=== PATIENT | female | born 1925 | race Caucasian/White ===

== ENCOUNTER 2016-06-26 07:48 | Day surgery (SDC) | payer OTHER ==
[~2016-06-26 07:48] MED LIST: ALENDRONATE SOD70 MG PO; ALLOPURINOL300 MG PO; FUROSEMIDE20 MG PO; LISINOPRIL/HCTZ PO; METOPROLOL TARTATE PO; POTASSIUM CHLO10 ME2 PO; PREDNISONE10 MG PO; XARELTO10 MG PO
--- NOTE | 2016-06-26 10:31 | NUR ---
INTRODUCED TO STUDENT NURSE IN PREOP HOLDING, CONFIRMED PROCEDURE
--- NOTE | 2016-06-26 10:49 | NUR ---
PT RECEIVED TO PACU AWAKE AND COMFORTABLE. DENIES PAIN OR NAUSEA. VSS.
--- NOTE | 2016-06-26 11:00 | NUR ---
DR ROSAS SPOKE WITH PT REGARDING SURGICAL FINDINGS AND FOLLOW-UP CARE. RIGHT ARM ELEVATED ON PILLOW. PT COMFORTABLE AND AWAKE. VSS.
--- NOTE | 2016-06-26 11:06 | NUR ---
PREOP INSTRUCTIONS GIVEN TO PATIENT. QUESTIONS ANSWERED. PATIENT VERBALIZES UNDERSTANDING. CONSENT CONFIRMED. EXTREMITY MARKED. NO PREOP MEDICATIONS GIVEN. KB
[2016-06-26] MEDS ORDERED: NORCO1 TA1 PO (11:07)
--- NOTE | 2016-06-26 11:08 | Provider's Discharge Care Plan ---
Problem, Goal, Plan Problem List 1. Skin carcinoma
--- NOTE | 2016-06-26 11:08 | Provider's Discharge Care Plan ---
Problem, Goal, Plan Problem List 1. Skin carcinoma
--- NOTE | 2016-06-26 11:38 | NUR ---
PATIENT RETURNED TO THE FLOOR AWAKE AND TALKING. DENIES PAIN. CMS INTACT. PO OFFERED AND REFUSED. DENIES NAUSEA. KB
--- NOTE | 2016-06-26 11:53 | OPERATIVE REPORT ---
DATE OF SURGERY: 06/26/2016 SURGEON: Doug Morley MD PREOPERATIVE DIAGNOSIS: 1. Squamous cell carcinoma of right forearm POSTOPERATIVE DIAGNOSIS: 1. Squamous cell carcinoma of right forearm PROCEDURE PERFORMED: 1. Excision of squamous cell carcinoma of right forearm ANESTHESIA: Total IV general and local. INDICATIONS: The patient is an 89-year-old woman with a biopsy-proven, enlarging squamous cell carcinoma of the right forearm. SURGICAL TECHNIQUE: The patient was taken to the operating room where total IV general was administered and the patient prepped and draped in the usual sterile fashion. She was breathing spontaneously throughout the procedure. A transverse elliptical incision was designed and marked out. An additional 1 mm rim of skin was also taken at all edges. This is full-thickness excised, and the resultant section of tissue removed was about 6 x 3 cm, with a large central nodule. The edges were examined under frozen section, and the rims of skin at proximal and distal margins proved to be negative. The excision was carried down into the deep subcutaneous tissue. Localized undermining was done. This patient's skin reached alright; however, she had extremely thin skin with poor dermis in a typical onion-skin fashion. Note, this is an elderly person on prednisone. The medial and lateral sections of it were closed with interrupted subcuticular 4-0 Vicryl suture. However, in the central portion, where there was slightly more tension, the tissues simply cut through the nonexistent dermis. This section was closed with vertical mattress and simple 5-0 nylon suture, which was gently approximated. Nonetheless, the needle holes tended to pull small holes in the skin. The lateral edges that were closed with subcuticular suture were treated with Steri-Strips, and the central part was treated with Neosporin ointment and a nonadherent dressing. The patient left in good condition and no intraoperative complications were encountered.
--- NOTE | 2016-06-26 12:33 | NUR ---
PATIENT CONTINUES TO DENY PAIN. MIN-MOD AMOUNT OF SHADOWING ON DSG. CONTINUES TO REFUSE PO. GOING HOME FOR LUNCH. DISCHARGE INSTRUCTIONS GIVEN TO PATIENT AND HER SON. QUESTIONS ANSWERED. PATIENT VERBALIZES UNDERSTANDING. DISCHARGED HOME. KB
== END 2016-06-26 12:25 | disposition home or self-care (01) ==
LOC: OR SRH 07:48 → SCU SRH 07:55
PROVIDERS: Surgery
PROC: 0JBG0ZZ Excision of Right Lower Arm Subcutaneous Tissue and Fascia, Open Approach (ICD-10-PCS; principal; 2016-06-26 10:00)
PROC: 0JQG0ZZ Repair Right Lower Arm Subcutaneous Tissue and Fascia, Open Approach (ICD-10-PCS; principal; 2016-06-26 10:00)
DX: C44.622 Squamous cell carcinoma of skin of right upper limb, including shoulder (principal); Z79.52 Long term (current) use of systemic steroids; I50.9 Heart failure, unspecified; I10 Essential (primary) hypertension
CPT/HCPCS: 29229; 29240; 50004; 60001; 80212; 84038

== ENCOUNTER 2016-10-27 18:36 | Inpatient (IN) | payer OTHER ==
[~2016-10-27] VITALS: Ht 165.1 cm; Wt 78.6 kg
[~2016-10-27 18:36] MED LIST changes: +NORCO1 TA1 PO
--- NOTE | 2016-10-27 20:53 | DIAGNOSTIC IMAGING REPORT ---
PROCEDURE: CT ABDOMEN/PELVIS W/O CONTRAST INDICATION: ABDOMINAL PAIN, flank pain, nausea, vomiting, leukocytosis. TECHNIQUE: Axial CT images were obtained through the abdomen and pelvis without IV contrast. Coronal and sagittal reformations were created. No contrast given for low GFR. COMPARISON: 11/23/2014 FINDINGS: Heart size at the upper limits of normal. Minor bibasilar scarring. Small hiatal hernia. Bilateral renal atrophy. The gallbladder surgically absent. Diffuse lipomatous change of the pancreas. Moderately enlarged left lobe of the liver, chronic. The unenhanced appearance of the adrenal glands and spleen is normal. The abdominal aorta is normal in its course and caliber with moderate atherosclerosis. IVC filter in place. There are no suspicious calcifications, retroperitoneal adenopathy or masses. The stomach, upper bowel loops, and mesentery appears normal. Tiny fat containing ventral abdominal wall hernia. No free fluid, or inflammation. Surgically absent uterus. Moderate pelvic floor prolapse. Surgical clips in the cul-de-sac and left inguinal region. Occasional diverticula of the sigmoid colon. No acute pericolonic inflammation. Pelvic small bowel loops, urinary bladder, and pelvic vessels appear normal. Mild pelvic vascular atherosclerosis. Normal appendix. No suspicious calcifications, free fluid, or mass. Severe degenerative changes in the spine. IMPRESSION: 1. No acute process. 2. Stable compared to the prior study. 3. Discussed with Dr. Schmitz in the emergency room. All CT scans at this facility use dose modulation, iterative reconstruction, and/or weight-based dosing when appropriate to reduce radiation dose to as low as reasonably achievable.
--- NOTE | 2016-10-27 21:07 | ED NURSING NOTES ---
Clinical Report - Nurses [facility] [address] [place] [address] 10/27/2016 18:38 Patient: TAD PATEL TRIAGE Triage time 1850 PM. Acuity: LEVEL 3. Chief Complaint: ABDOMINAL PAIN, NAUSEA, VOMITING and DIARRHEA. Alert. No acute distress. SEPSIS SCREEN: Sepsis Screen. Negative (no infection suspected/documented). DARIEN COMA SCORE: Ashley Coma Scale: 15- eyes open spontaneously (4); best verbal response- oriented x 4 (5); best motor response- obeys commands (6). --18:58 Ana Guevara R.N. 18:47 10/27/16. BP: 108/78. HR: 128. RR: 16. O2 saturation: 97% on room air. Temp: 98.8 F (oral). Pain level now: 03/03. --18:58 Ana Guevara R.N. Weight: 77.1 kg stated. Height/Length: 65 inches Per Patient. BMI: 28.3. --18:47 Ana Guevara R.N. Medications Allopurinol Oral (Tablet 300 mg), daily. Digoxin Oral (Tablet 125 mcg) 1 tablet (1 tab ;;sa cain and 2 tablets on ; ; fr). Furosemide Oral (Tablet 20 mg) 2 tablets, daily. Potassimin Oral 10 meq, 1 twice daily. Simvastatin Oral (Tablet 20 mg) 1 tablet, daily. --18:52 Ana Guevara R.N. Lisinopril Oral. --18:52 Ana Guevara R.N. Metoprolol Tartrate Oral. --18:52 Ana Guevara R.N. PredniSONE Oral. --21:49 Ana Guevara R.N. The following entry was struck by Ana Guevara R.N., 21:49 (10/27/16) Reason - other. <<STRICKEN ENTRY-- Promethazine HCl Oral (Tablet 12.5 mg) 1 tablet, 4x a day as needed. --18:52 Ana Guevara R.N. --END STRIKE>>. Allergies No Known Drug Allergy. --18:52 Ana Guevara R.N. Medication/allergy information source: the patient. --18:58 Ana Guevara R.N. History Arrived by private vehicle. Historian: patient. Accompanied by family and son. Primary physician (Dr. Estrella). ( Pt states that since Thursday has been vomiting multiple times a day maybe 6-7, unable to keep food down since thursday. Pain is on the right lower quadrant pain/right flank pain. Pt has also had diarrhea dark stools (same as vomit). Pt has felt hot and cold, weak, SOB.). Onset. (Thursday). She has had fever, nausea, vomiting, diarrhea and abdominal pain. No constipation. Last oral intake by patient was (thursday). Treatment ATTENDING RADIOLOGIST: None. PAST MEDICAL HX: Immunizations: up-to-date. The patient has had a hysterectomy. SOCIAL HX: Never smoker. No alcohol use or drug use. No recent travel. No infectious disease exposure. No known contact with a sick individual. ABUSE ASSESSMENT: No report of abuse. SELF HARM ASSESSMENT: A self harm assessment was performed. The patient answered "no" to the question "Do you have thoughts of harming or killing yourself?" and "Have you recently had thoughts about harming or killing others?". FALL RISK ASSESSMENT: Fall risk assessment completed. No fall risk identified. NUTRITIONAL RISK ASSESSMENT: The nutritional risk assessment revealed no deficiencies. FUNCTIONAL ASSESSMENT: Functional assessment: no impairments noted. LEARNING NEEDS ASSESSMENT: The learning needs assessment revealed no barriers. SKIN INTEGRITY ASSESSMENT: Skin integrity risk assessment completed. No skin integrity risk identified. --18:58 Ana Guevara R.N. PROBLEMS: Pulmonary Embolism. Renal Insufficiency. Abnormal Test. Gout. Congestive Heart Failure. Hypertension. --18:53 Ana Guevara R.N. Fibromyalgia. --21:49 Ana Guevara R.N. ADDITIONAL SURGERIES: Bowel resection for colon CA. Hysterectomy. --18:53 Ana Guevara R.N. IVC filter. --19:00 Ana Guevara R.N. Cholecystectomy. --21:49 Ana Guevara R.N. Interventions ID band on patient. --18:58 Ana Guevara R.N. PHYSICAL ASSESSMENT To room via wheelchair. GENERAL / NEURO / PSYCH: Alert. Oriented X 4. Appears in no acute distress. Appears in pain. HEENT: Mucous membranes are pink. RESPIRATORY: Respirations not labored. Breath sounds within normal limits. CVS: Capillary refill less than 2 seconds. GI / : The patient has had nausea. Abdominal tenderness in the right side of the abdomen and right lower quadrant. Guarding and rebound tenderness present. Bowel sounds within normal limits. SKIN: Skin is warm and dry. --18:59 Ana Guevara R.N. NURSING PROGRESS NOTES The initial plan of care for this patient has been created This plan of care was discussed with the patient and family. Pulse oximeter and NIBP monitor placed on patient; monitor alarms on. Patient gowned. Reassurance given. Patient identifiers checked. Call light placed in reach. Side rails up x 1. Bed placed in lowest position. Brakes of bed on. --19:00 Ana Guevara R.N. Patient ready for evaluation. --19:00 Ana Guevara R.N. 19:10/27/2016 Site #1 started via IV in the right antecubital space with an 18g angiocath; one attempt. Blood drawn: rainbow set. Labeled in the presence of the patient and sent to the lab. --19:16 Ana Guevara R.N. 19:25 10/27/2016 Zofran (Ondansetron HCl) IVP 4 mg given over 2 minute(s) via site #1. Allergies verified and confirmed 5 rights. IV patency established. IV site checked: no pain, redness, or swelling. IV flushed thoroughly pre- and post-medication administration. IVP given by RN. --19:25 Ana Guevara R.N. :10/27/2016 Started bag #1 1000 mL IV Fluids IV NS (Saline); bolus of 500 mL over 1 hour(s) then at 125 mL/hr over 4 hour(s) via site #1 via IV pump. Allergies verified and confirmed 5 rights. IV patency established. IV site checked: no pain, redness, or swelling. IV flushed thoroughly pre- and post-medication administration. --19:25 Ana Guevara R.N. 19:25 10/27/16. BP: 102/75. HR: 129. RR: 16. O2 saturation: 98% on room air. Pain level now: 9/10. --19:26 Ana Guevara R.N. Cardiac rhythm: normal sinus rhythm. Patient ID band checked for patient name, birthdate and medical record number: patient confirmed. Catheterized urine collected with return of yellow-colored sari-colored clear urine; sample sent to lab for urinalysis. Specimen labeled in the presence of the patient. The patient is calm. GI / : The patient reports nausea. The patient reports abdominal pain. Patient identifiers checked. Call light placed in reach. --19:26 Ana Guevara R.N. EKG time: (19:23). EKG was performed by a tech and shown to the ED physician. --19:43 Mimi Dean 20:00 10/27/16. BP: 107/90. HR: 120. RR: 15. O2 saturation: 96% on room air. Pain level now: 0/10. --20:58 Ana Guevara R.N. 20:00 PM. Cardiac rhythm: sinus tachycardia. manager printing, pulse oximeter and NIBP monitor placed on patient; monitor alarms on. Reassurance given. Reassessment after oxygen and fluids administered. She is calm and resting quietly. Overall patient status is the same- she states feels the same. GI / : The patient reports abdominal pain. Denies nausea, diarrhea or vomiting. Patient identifiers checked. --20:58 Ana Guevara R.N. 20:34 10/27/2016 IV Fluids IV NS via IV site #1 Rate Changed: bag #1 decreased to 125 mL/hr via IV pump. IV patency established. IV site checked: no pain, redness, or swelling. IV flushed thoroughly. --20:59 Ana Guevara R.N. 20:59 10/27/2016 Zofran IVP Response: no adverse reaction symptoms have improved the patient feels better. --20:59 Ana Guevara R.N. 21:35 10/27/2016 Started 1 gm of Ceftriaxone IVPB in bag #1 50 mL; at 150 mL/hr over 30 minute(s) via site #1 via IV pump. Allergies verified and confirmed 5 rights. IV patency established. IV site checked: no pain, redness, or swelling. IV flushed thoroughly pre- and post-medication administration. Completed per protocol. --21:35 Ana Guevara R.N. Cardiac rhythm: sinus tachycardia. Oxygen administered by nasal cannula at 2 liters. manager printing, pulse oximeter and NIBP monitor placed on patient. Reassurance given. Reassessment after fluids administered. She is calm. Overall patient status is the same- she states feels the same. ( Pt asymptomatic with Bp80's fluids infusing, blood cultures x2 acquired, iv antibiotics infusing. Will monitor). Patient identifiers checked. Call light placed in reach. --21:37 Ana Guevara R.N. 21:00 10/27/16. BP: 83/60 (regular adult cuff) taken on the left arm, via an automated monitor, while lying. HR: 120. RR: 15. O2 saturation: 97% on room air. Temp: 98.9 F. Pain level now: 0/10. --21:37 Ana Guevara R.N. 21:50 10/27/16. BP: 105/77 (regular adult cuff) taken on the left arm, via an automated monitor, while lying. HR: 120. RR: 15. O2 saturation: 100%. Temp: 99 F. Pain level now: 0/10. --21:51 Ana Guevara R.N. Cardiac rhythm: sinus tachycardia. Monitoring of patient in place. Reassurance given. The patient is calm and resting quietly. Overall patient status is the same- she states feels better. GI / : Denies abdominal pain, nausea, diarrhea or vomiting. SKIN: Skin is warm. Skin color within normal limits. Call light placed in reach. --21:51 Ana Guevara R.N. 22:09 10/27/2016 Ceftriaxone IVPB Discontinued: bag #1 completed upon admission. Total amount infused: 50 mL. IV patency established. IV site checked: no pain, redness, or swelling. IV flushed thoroughly. --22:14 Ana Guevara R.N. DISPOSITION / DISCHARGE 22:13 10/27/2016 Site #1 reassessed; patent, infusing well and no signs of infection or infiltration. Good blood return present. --22:13 Ana Guevara R.N. Departure time: 2213 PM. Condition at departure: stable. Report was given to a nurse via a phone call. Report included patient's care, treatment, medications, reviewed medication reconcilliation, and condition (including any recent changes or anticipated changes). All questions were answered. Report was acknowledged and care was transferred. (Rosey Moore). FALL RISK ASSESSMENT: Fall risk assessment completed. No fall risk identified. --22:13 Ana Guevara R.N. Cardiac rhythm: sinus tachycardia. --22:14 Ana Guevara R.N. 22:00 10/27/16. BP: 105/75. HR: 120. RR: 15. O2 saturation: 100% on room air. Temp: 99 F (oral). Pain level now: 0/10. --22:14 Ana Guevara R.N. Locked/Released at 10/27/2016 22:14 by Ana Guevara R.N.
--- NOTE | 2016-10-27 21:07 | ED CLINICAL REPORT ---
Clinical Report - Physicians/Mid Levels [facility] [address] [place] [address] 10/27/2016 18:38 Patient: TAD PATEL Time Seen: 18:51. Arrived- By private vehicle. Historian- patient. HISTORY OF PRESENT ILLNESS Chief Complaint: ABDOMINAL PAIN. At its maximum, severity described as severe. When seen in the E.D., it was gone. Modifying factors- worsened by walking. It is described as "pain", sharp and stabbing. No radiation. It is described as located in the right lower quadrant. This started 2 days ago and is now gone. It was abrupt in onset and has been intermittent and waxing/waning. The patient has had nausea, loss of appetite and vomiting. She has had diarrhea (dark). This has occurred several times. Similar symptoms previously: None. REVIEW OF SYSTEMS No chills, fever, sweats, calf pain or chest pain. No cough, difficulty breathing, pedal edema, palpitations or constipation. No urinary problems. She has had black stools. All systems otherwise negative, except as recorded above. PAST HISTORY PCP - Sameer. Problems: Pulmonary Embolism. Renal Insufficiency. Abnormal Test. Gout. Congestive Heart Failure. Hypertension. Additional Surgeries: Bowel resection for colon CA. Cholecystectomy. Hysterectomy. IVC filter. Medications: Metoprolol Tartrate Oral. Lisinopril Oral. Allopurinol Oral (Tablet 300 mg), daily. Digoxin Oral (Tablet 125 mcg) 1 tablet (1 tab ;;sa cain and 2 tablets on ; ; fr). Furosemide Oral (Tablet 20 mg) 2 tablets, daily. Potassimin Oral 10 meq, 1 twice daily. Promethazine HCl Oral (Tablet 12.5 mg) 1 tablet, 4x a day as needed. Simvastatin Oral (Tablet 20 mg) 1 tablet, daily. Allergies: No Known Drug Allergy. SOCIAL HISTORY Never smoker. No alcohol use. Is a local resident. Resides in a house. She lives with a family member. FAMILY HISTORY Hypertension in first-degree relative (mother); heart disease in first-degree relative (mother and father); cancer in first-degree relative (mother). brother due to kidney disease. ADDITIONAL NOTES The nursing notes have been reviewed. PHYSICAL EXAM Vital Signs: 10/27/2016 18:47 BP: 108/78. HR: 128. RR: 16. O2 saturation: 97%. Temp: 98.8 F. Pain level now: 03/03. Have been reviewed. Appearance: Alert. Eyes: Pupils equal, round and reactive to light. ENT: Pharynx normal. Neck: Neck supple. CVS: Normal heart rate and rhythm. Heart sounds normal. Respiratory: No respiratory distress. Breath sounds normal. Abdomen: Soft. Moderate tenderness in the epigastric area, right lower quadrant and lower abdomen. Bowel sounds normal. No organomegaly. No mass. Back: Normal inspection. Rectal: External hemorrhoids. Heme-positive stool. (POC test reference range: negative). Skin: Skin warm and dry. Normal skin color. Normal skin turgor. Extremities: Extremities exhibit normal ROM. No lower extremity edema. LABS, X-RAYS, AND EKG EKG: Rate: 118. Tachycardia. Non-specific ST segment / T wave abnormalities. Changes present when compared to prior EKG. (26 Jun 2016). Chest X-ray: No acute disease. The X-rays were independently viewed by me. Abdominal CT: IMPRESSION: 1. No acute process. 2. Stable compared to the prior study. The study was interpreted contemporaneously by me and discussed with the radiologist. Laboratory Tests: UA-Culture if indicated: (JASON: 10/27/2016 19:10) ( MsgRcvd 10/27/2016 19:33) Final results Test Result Flag Units (Reference) URINE COLOR YELLOW URINE APPEARANCE SL CLOUDY URINE GLUCOSE NEGATIVE (NEGATIVE) URINE BILIRUBIN ICTOTEST NEGATIVE (NEGATIVE) URINE KETONE NEGATIVE (NEGATIVE) URINE SPECIFIC GRAVITY 1.020 (1.010-1.030) URINE PH 6.0 (5.0-8.0) URINE PROTEIN TRACE (NEGATIVE) URINE UROBILINOGEN 1.0 EU/dL (0.2-1.0) URINE NITRITE NEGATIVE (NEGATIVE) URINE BLOOD NEGATIVE (NEGATIVE) URINE LEUK ESTERASE POSITIVE (NEGATIVE) URINE RBC NONE SEEN rbc/hpf (0-1) URINE WBC 25-50 wbc/hpf (0-1) URINE EPITHELIAL CELLS 0-1 EPI/hpf (0-5) URINE BACTERIA MANY (4+) (NONE SEEN) CBC w Diff: (AJSON: 10/27/2016 19:05) ( [facility] 10/27/2016 19:15) Final results Test Result Flag Units (Reference) WHITE BLOOD COUNT 18.1 H K/uL (4.5-11.5) RED BLOOD COUNT 4.10 M/uL (4.00-5.20) HEMOGLOBIN 12.0 gm/dL (12.0-16.0) HEMATOCRIT 36.9 % (36.0-46.0) MEAN CELL VOLUME 90 fL (80-100) MEAN CORPUSCULAR HGB 29 pg (26-34) MEAN CORPUSCULAR HGB CONC 33 g/dL (31-37) RED CELL DISTRIBUTION WIDTH 15.9 H % (11.6-14.8) PLATELET COUNT 189 K/uL (150-400) NEUTROPHIL % 86.9 H % (50-75) LYMPH % 7.2 L % (25-40) MONO % 4.6 % (3-14) EOSINOPHIL % 0.2 % (0-4) BASOPHIL % 1.1 % (0-2) PT with INR: (JASON: 10/27/2016 19:05) ( [facility] 10/27/2016 19:35) Final results Test Result Flag Units (Reference) INR 1.1 (0.8-1.2) Low Intensity Therapy: INR 1.5-2.0 PT range 18.5-23.1Mod.Intensity Therapy: INR 2.0-3.0 PT range 23.1-31.5High Intensity Therapy: INR 2.5-3.5 PT range 27.4-35.5High Intensity Therapy 2: INR 3.0-4.0 PT range 31.5-39.3 APTT 30 SECONDS (24-34) Lactate, Serum: (JASON: 10/27/2016 19:45) ( [facility] 10/27/2016 20:38) Final results Test Result Flag Units (Reference) LACTIC ACID 1.6 mmol/L (0.4-2.0) CPK: (JASON: 10/27/2016 19:05) ( [facility] 10/27/2016 19:45) Final results Test Result Flag Units (Reference) CPK 113 U/L (24-260) TROPONIN I 0.05 ng/mL (0.00-1.5) TROPONIN REFERENCE RANGE:<0.1 NEGATIVE0.1-1.5 INDETERMINANT>1.5 POSITIVE CMP: (JASON: 10/27/2016 19:05) ( [facility] 10/27/2016 19:45) Final results Test Result Flag Units (Reference) GLUCOSE 136 H mg/dL (70-110) BUN 34 H mg/dL (7-18) CREATININE 1.8 H mg/dL (0.6-1.3) Estimated GFR 28.16 mL/min Estimated GFR- 34.13 mL/min Note: Persistent reduction over 3 months in eGFR<60 mL/min/1.73 m2 defines CKD. Patients with eGFR values>=60 mL/min/1.73 m2 may also have CKD if evidence ofpersistent proteinuria. Additional information may be foundat www.kidney.org. SODIUM 125 L mmol/L (136-145) POTASSIUM 3.4 L mmol/L (3.5-5.1) CHLORIDE 99 mmol/L (98-107) CARBON DIOXIDE 23 mmol/L (21-32) CALCIUM 8.7 mg/dL (8.5-10.1) TOTAL PROTEIN 7.4 g/dL (6.4-8.2) ALBUMIN 3.2 L g/dL (3.3-5.0) BILIRUBIN, TOTAL 2.1 H mg/dL (0.0-1.0) ALKALINE PHOSPHATASE 81 U/L (46-116) AST (SGOT) 62 H U/L (15-37) ALT (SGPT) 61 U/L (12-78) LIPASE 43 L U/L (73-393) AMYLASE 285 H U/L (25-115) . PROGRESS AND PROCEDURES Course of Care: Patient is stable. Discussed case with hospitalist, (Sameer). Reviewed test results and need for additional work-up. Agreed upon treatment plan, need for patient follow-up and decision to place in observation. Patient/family counseled. Old medical records ordered. Disposition: Admitted. Observation. CLINICAL IMPRESSION Abdominal pain of unknown cause. Occult GI bleed. Urinary tract infection. (Electronically signed by Sen Schmitz MD 10/28/2016 21:43)
--- NOTE | 2016-10-27 21:07 | ED ORDER SUMMARY ---
..... Patient: TAD PATEL OrderSheet [facility] VisitID: [id number] [place], [place] [id number] 89y, F Registration Date/Time: 10/27/2016 ORDER SHEET Weight: 77.1 kg (stated) Allergies: No Known Drug Allergy GENERAL ORDERS: CBC w Diff Urgent (18:51 10/27/2016 Marissa FRANKS) (Ack 18:53 Arvind) (19:15 EHassan R.N.) CMP Urgent (18:51 10/27/2016 Marissa FRANKS) (Ack 18:53 Arvind) (19:15 EHassan R.N.) UA-Culture if indicated Urgent (18:51 10/27/2016 Marissa FRANKS) (Ack 18:53 Arvind) (19:15 EHassan R.N.) Amylase Urgent (18:51 10/27/2016 Marissa FRANKS) (Ack 18:53 Arvind) (19:15 EHassan R.N.) Lipase Urgent (18:51 10/27/2016 Marissa FRANKS) (Ack 18:53 Arvind) (19:15 EHassan R.N.) Chest 1V Urgent (19:14 10/27/2016 Marissa FRANKS) (Ack 19:22 Arvind) (19:24 EHassan R.N.) Welfare Interviewer (Continuous) (19:14 10/27/2016 Marissa FRANKS) (19:24 EHmarcian R.N.) PT with INR Urgent (19:15 10/27/2016 Marissa FRANKS) (Ack 19:21 Arvind) (19:24 EHassan R.N.) PTT Urgent (19:15 10/27/2016 Marissa FRANKS) (Ack 19:21 Arvind) (19:24 EHassan R.N.) CPK Urgent (19:15 10/27/2016 Marissa FRANKS) (Ack 19:22 Arvind) (19:24 EHassan R.N.) Troponin-I Urgent (19:10/27/2016 Marissa FRANKS) (Ack 19:22 Arvind) (19:24 EHassan R.N.) Oxygen (2 L/min) (NC) (19:15 10/27/2016 Marissa FRANKS) (19:24 Fang R.N.) Pulse oximeter (19:15 10/27/2016 Marissa FRANKS) (19:15 Fang R.N.) EKG - ER Stat (19:15 10/27/2016 Marissa FRANKS) (Ack 19:21 OHernandez) (19:24 EHchapincito R.N.) Lactate, Serum Urgent (19:38 10/27/2016 Marissa FRANKS) (Ack 19:41 Kingsley) (19:47 EHchapincito R.N.) US Abdomen Limited (No) Urgent (20:06 10/27/2016 Marissa FRANKS) (Ack 20:14 Kingsley) (20:51 Marissa FRANKS) (Cancelled: Other20:51 Marissa FRANKS) CT Abd/Pel wo Cont Urgent (20:06 10/27/2016 Marissa FRANKS) (Ack 20:14 Kingsley) (20:22 MCampbell) BNP Urgent (21:01 10/27/2016 Marissa FRANKS) (Ack 21:09 Kingsley) (21:35 EHchapincito R.N.) Blood Culture (No) (N/A) Urgent (21:04 10/27/2016 Marissa FRANKS) (Ack 21:09 Kingsley) (21:35 Fang R.N.) MEDICATION ORDERS: IV FLUIDS: IV Saline Lock (18:51 10/27/2016 Marissa FRANKS) (19:16 Fang R.N.) IV NS : initial bolus 500 mL (1000 mL/hr), then 125 mL/hr for 4h (NOW); Urgent (19:14 10/27/2016 Marissa FRANKS) (19:25 EHchapincito R.N.) Zofran IV 4 mg (NOW) (19:15 10/27/2016 Marissa FRANKS) (19:25 EHchapincito R.N.) Ceftriaxone IV 1 gm/50mL (NOW) (21:04 10/27/2016 Marissa FRANKS) (21:35 Fang R.N.) ORDER SHEET NOTES: [Electronically signed by Ana Guevara R.N. (22:14 10/27/2016)] [Electronically signed by Sen Schmitz MD (21:43 10/28/2016)] [Electronically locked/signed by Ana Guevara R.N. (22:14 10/27/2016)]
--- NOTE | 2016-10-27 21:07 | ED ORDER SUMMARY ---
..... Patient: TAD PATEL OrderSheet [facility] VisitID: [id number] [place], [place] [id number] 89y, F Registration Date/Time: 10/27/2016 ORDER SHEET Weight: 77.1 kg (stated) Allergies: No Known Drug Allergy GENERAL ORDERS: CBC w Diff Urgent (18:51 10/27/2016 Marissa FRANKS) (Ack 18:53 Arvind) (19:15 EHassan R.N.) CMP Urgent (18:51 10/27/2016 Marissa FRANKS) (Ack 18:53 Arvind) (19:15 EHassan R.N.) UA-Culture if indicated Urgent (18:51 10/27/2016 Marissa FRANKS) (Ack 18:53 Avrind) (19:15 EHassan R.N.) Amylase Urgent (18:51 10/27/2016 Marissa FRANKS) (Ack 18:53 Arvind) (19:15 EHassan R.N.) Lipase Urgent (18:51 10/27/2016 Marissa FRANKS) (Ack 18:53 Arvind) (19:15 EHassan R.N.) Chest 1V Urgent (19:14 10/27/2016 Marissa FRANKS) (Ack 19:22 Arvind) (19:24 EHassan R.N.) Hydraulics Engineer (Continuous) (19:14 10/27/2016 Marissa FRANKS) (19:24 EHmarcian R.N.) PT with INR Urgent (19:15 10/27/2016 Marissa FRANKS) (Ack 19:21 Arvind) (19:24 EHassan R.N.) PTT Urgent (19:15 10/27/2016 Marissa FRANKS) (Ack 19:21 Arvind) (19:24 EHassan R.N.) CPK Urgent (19:15 10/27/2016 Marissa FRANKS) (Ack 19:22 Arvind) (19:24 EHassan R.N.) Troponin-I Urgent (19:10/27/2016 Marissa FRANKS) (Ack 19:22 Arvind) (19:24 EHassan R.N.) Oxygen (2 L/min) (NC) (19:15 10/27/2016 Marissa FRANKS) (19:24 Fang R.N.) Pulse oximeter (19:15 10/27/2016 Marissa FRANKS) (19:15 Fang R.N.) EKG - ER Stat (19:15 10/27/2016 Marissa FRANKS) (Ack 19:21 OHernandez) (19:24 EHchapincito R.N.) Lactate, Serum Urgent (19:38 10/27/2016 Marissa FRANKS) (Ack 19:41 Kingsley) (19:47 EHchapincito R.N.) US Abdomen Limited (No) Urgent (20:06 10/27/2016 Marissa FRANKS) (Ack 20:14 Kingsley) (20:51 Marissa FRANKS) (Cancelled: Other20:51 Marissa FRANKS) CT Abd/Pel wo Cont Urgent (20:06 10/27/2016 Marissa FRANKS) (Ack 20:14 Kingsley) (20:22 MCampbell) BNP Urgent (21:01 10/27/2016 Marissa FRANKS) (Ack 21:09 Kingsley) (21:35 EHchapincito R.N.) Blood Culture (No) (N/A) Urgent (21:04 10/27/2016 Marissa FRANKS) (Ack 21:09 Kingsley) (21:35 Fang R.N.) MEDICATION ORDERS: IV FLUIDS: IV Saline Lock (18:51 10/27/2016 Marissa FRANKS) (19:16 Fang R.N.) IV NS : initial bolus 500 mL (1000 mL/hr), then 125 mL/hr for 4h (NOW); Urgent (19:14 10/27/2016 Mairssa FRANKS) (19:25 EHchapincito R.N.) Zofran IV 4 mg (NOW) (19:15 10/27/2016 Marissa FRANKS) (19:25 EHchapincito R.N.) Ceftriaxone IV 1 gm/50mL (NOW) (21:04 10/27/2016 Marissa FRANKS) (21:35 Fang R.N.) ORDER SHEET NOTES: [Electronically signed by Ana Guevara R.N. (22:14 10/27/2016)] [Electronically signed by Sen Schmitz MD (21:43 10/28/2016)] [Electronically locked/signed by Ana Guevara R.N. (22:14 10/27/2016)]
--- NOTE | 2016-10-27 21:24 | DIAGNOSTIC IMAGING REPORT ---
PROCEDURE: XR CHEST 1 VIEW INDICATION: Abdominal and chest pain. TECHNIQUE: Portable AP view (19 3 hours). COMPARISON: Compared to chest x-ray on 08/16/2014. FINDINGS: Allowing for overlying wires and electrodes, lungs are clear. Heart and mediastinum are normal. Bilateral dystrophic calcifications of the shoulders. IMPRESSION: 1. Negative chest.
[2016-10-27 22:32] VITALS: BP 135/72
[2016-10-28] VITALS (7 sets, daily range): BP systolic 110–148; BP diastolic 60–81
--- NOTE | 2016-10-28 03:41 | HISTORY AND PHYSICAL ---
ADMITTED: 10/27/2016 HISTORY OF PRESENT ILLNESS: The patient is an 89-year-old woman who developed rather sudden onset of nausea, vomiting, and diarrhea starting on 10/25/2016. She has had this continuing. She became quite weak and was still having a lot of stomach upset and vomiting today. Her diarrhea seems to be lessening. She came into the emergency department due to weakness and rapid heart rate and was felt to need admission. She did show evidence of a urinary tract infection with initial workup and was started on ceftriaxone. She also showed hyponatremia and evidence of some renal insufficiency changes, probably due to dehydration and has been started on normal saline IV fluid. She has noticed no obvious blood in her stool. She has had no major shortness of breath, cough or high fevers or chills. She has noticed no blood in her urine. MEDICAL/SURGICAL HISTORY: Past medical history: Remarkable for a history of longstanding hypertension and polymyalgia rheumatica. She has also had a problem with colon cancer and has had 2 surgeries for this and also has had a large villous adenoma removed from her colon endoscopically. Prior to her most recent surgery for the colon cancer, she had developed a DVT and pulmonary emboli. She has not had recurrence of these since she had her tumor removed. She has not shown evidence of recurrence so far. She has problems as well with some mild osteoarthritis, osteoporosis and hyperuricemia. Past surgical history is remarkable for childbirth x9. She has also had a hysterectomy and bladder repair, cholecystectomy and partial colon resection in 1991 for colon cancer, colonoscopic removal of a large villous adenoma in 2003, recent partial colectomy in 2014 for colon cancer recurrence. 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 MEDICATIONS: 1. Metoprolol tartrate 50 mg strength 1 tablet in the morning and 1-1/2 tablets in the evening. 2. Lisinopril 20 HCTZ 12.5 one and a half tablets daily for blood pressure control 3. Prednisone 10 mg daily. 4. Allopurinol 150 mg daily for preventing gout. 5. Alendronate 70 mg 1/2 tablet once weekly. 6. Furosemide 20 mg on even numbered days as needed to prevent excess fluid retention. 7. Tylenol as needed for back pain. 8. The patient has been eating a banana every other day or so to help prevent low potassium problems. ALLERGIES: 1. THE PATIENT HAS NO KNOWN ALLERGIES. SOCIAL HISTORY: Indicates the patient is . She does live with 1 or 2 of her sons in the [facility] area. She does not smoke. She does not drink alcohol. She does not use other drugs. FAMILY HISTORY: Remarkable for a mother who had hypertension, stroke, and breast cancer in her 80s and eventually around age 89. The patient's father had heart problems develop around age 62 and of heart related problems at age 82 or 83. REVIEW OF SYSTEMS: HEENT has been okay. Respiratory has been okay. Cardiovascular has been okay except for tachycardia. Gastrointestinal is as noted above. Genitourinary has been okay with no dysuria or major frequency. Musculoskeletal is remarkable for chronic lower back pain and history of early spinal stenosis developing. Neurologic has been okay except for some mild memory difficulties. Psychiatric has been okay. Skin has been okay with no new problems. PHYSICAL EXAMINATION: GENERAL: Reveals the patient to be an elderly woman, appearing to be perhaps a little younger than her stated age. She does have slightly epps-shaped facies. VITAL SIGNS: Temperature is 97.6. Pulse is in the 110-120 range. Respiratory rate is 22, blood pressure is 132/72. Oxygen saturation is 100% on 2 L per minute by nasal prongs. HEENT: Head is normal. Ear canals and tympanic membranes are normal. Eyes show normal extraocular movements and no obvious hemorrhages or exudates in the fundi. Nose and throat are clear. NECK: Shows no significant adenopathy. Carotid pulses are normal. No distinct bruits are heard. CHEST: Basically clear with no rales or rhonchi. BREASTS: Show no masses. There is no axillary adenopathy. HEART: Reveals normal S1 and S2 with a grade 1/6 systolic murmur along the left sternal border. There is an intermittent S3. ABDOMEN: Tender in the right lower quadrant to a yylc-ca-nmmdbnli degree. Bowel tones are normal. EXTREMITIES: Show some venous varicosities in the lower legs. There is no edema. There are +1 dorsalis pedis pulses noted left and right. NEUROLOGIC: Reveals the patient to be alert. She is a little uncertain of the date but identifies that she is at [facility]. Cranial nerves are normal. Motor and sensory exams are normal. Motor strength is symmetric. SKIN: Shows some old scars, no new unusual or worrisome skin lesions. LAB/IMAGING: Laboratory studies show urinalysis with 4+ bacteria and leukocyte esterase positive and 25-50 white blood cells per high-powered field with 4+ bacteria noted. Sodium is 125, potassium 3.4, chloride is 99, CO2 is 23. Lactic acid is 1.6. Protime INR is 1.1. CPK is 113, troponin I is 0.05. Amylase is 285, lipase is 43. SGOT is 62 , SGPT 61. Total bilirubin is 2.1. Chest x-ray shows no evidence of infiltrate or other major abnormalities. Abdominal CT scan shows basically stable abdomen with no active problems. There was no evidence of appendicitis or other significant abnormality. There is no major abnormality of the liver or common bile duct or pancreas. EKG shows a sinus tachycardia with some ST-T changes of nonspecific nature. IMPRESSION: 1. The patient is presenting with a picture that is mostly one of viral gastroenteritis and secondary dehydration, secondary to electrolyte abnormalities. 2. She also has a history of underlying polymyalgia rheumatica and has been on prednisone for quite a number of years. 3. She has a history of colon cancer and shows positive occult blood in her stool. 4. She also has hyponatremia and hypokalemia and these will be corrected. 5. Other longstanding problems include osteopenia related to prednisone use. 6. Spinal stenosis of a zjet-ry-yzhdykjq degree, which is significantly affecting the patient's ambulation. PLAN: The patient is admitted to the inpatient status. She will be in the hospital at least 2 midnights and will require monitoring her response to the antibiotics and response to correction of electrolyte abnormalities. She also will need to have her heart rate controlled. She will be started on metoprolol tartrate tonight if she can keep this down. Additionally, she will continue with ceftriaxone for urinary tract infection until culture is available to see if a change in antibiotic would be appropriate. She will have liver tests followed and blood tests to see if her multiple abnormalities normalize. She does show some elevated amylase and may have an element of mild pancreatitis contributing to this. She did not show any evidence of an abnormal pancreas on the CT scan, however. She and I discussed code status and she felt that she would prefer to be NO CODE STATUS if she should have a sudden cardiovascular collapse. She would like to have appropriate aggressive medication treatment to correct any significant problems and this would translate into a CHEMICAL CODE ONLY STATUS which will be ordered for her.
[2016-10-28] MEDS ORDERED: DIGOXIN0.125 MG PO (08:19)
[2016-10-28] MEDS ORDERED: SIMVASTATIN20 MG PO (08:21)
--- NOTE | 2016-10-28 21:44 | ED DISCHARGE INSTRUCTIONS ---
Patient: TAD PATEL General Instructions [facility] VisitID: [id number] [address] [place] [address] 89y, F Registration Date/Time: 10/27/2016 Abdominal pain of unknown cause. Occult GI bleed. Urinary tract infection. (Electronically signed by Sen Schmitz MD 10/28/2016 21:43)
--- NOTE | 2016-10-28 21:44 | ED MAR SUMMARY ---
..... Medication Administration Record [facility] [address] [place] [address] Patient: TAD PATEL Visit ID: [id number] 89y, F Weight: 77.1 kg Height/Length: 65 in BMI: 28.3 ALLERGIES: No Known Drug Allergy Start 19:25 10/27/2016 Ana Guevara R.N. Medication Administered: IV NS (SALINE), Dose: IV Fluids over 4 hour(s), Rate: 125 mL/hr, Bolus: 500 mL over 1 hour(s), Dispensed: 1000 mL bag, Site: #1 right AC. Medication Ordered: IV NS : initial bolus 500 mL (1000 mL/hr), then 125 mL/hr for 4h (NOW); Urgent. Given 19:25 10/27/2016 Ana Guevara R.N. Medication Administered: ZOFRAN [IVP] (ONDANSETRON HCL), Dose: 4 mg IVP over 2 minute(s), Site: #1 right AC. Medication Ordered: Zofran IV 4 mg (NOW). Start 21:35 10/27/2016 Ana Guevara R.N., Stop 22:09 10/27/2016 Ana Guevara R.N. Medication Administered: CEFTRIAXONE [IVPB], Dose: 1 gm IVPB over 30 minute(s), Rate: 150 mL/hr, Dispensed: 50 mL bag, Site: #1 right AC. Medication Ordered: Ceftriaxone IV 1 gm/50mL (NOW).
--- NOTE | 2016-10-28 21:44 | ED MED RECONCILIATION SUMMARY ---
Patient: TAD PATEL Medication Reconciliation Report [facility] VisitID: [id number] [address] [place] [address] 89y, F Registration Date/Time: 10/27/2016 Weight: 77.1 kg Height/Length: 65 in. BMI: 28.3 ALLERGIES: No Known Drug Allergy The patient's Home Medications are listed below: THE FOLLOWING MEDICATIONS NEED TO BE RECONCILED: Allopurinol Oral (300 mg), daily Digoxin Oral (125 mcg) 1 tablet, 1 tab ;;sa cain and 2 tablets on ; ; Furosemide Oral (20 mg) 2 tablets, daily Lisinopril Oral Metoprolol Tartrate Oral Potassimin Oral 10 meq, 1 twice daily PredniSONE Oral Simvastatin Oral (20 mg) 1 tablet, daily The source(s) of the original Home Medication information: patient The following Medications were given to the patient in the Emergency Department: Zofran [IVP] IVP 4 mg, administered: 10/27/2016 7:25:00 PM IV NS IV Fluids bolus 500 mL over 1 hour(s), then 125 mL/hr, administered: 10/27/2016 7:25:00 PM Ceftriaxone [IVPB] IVPB bolus 0, then 1 gm 150 mL/hr, administered: 10/27/2016 9:35:00 PM The following Medications were prescribed to the patient: None.
--- NOTE | 2016-10-28 21:44 | ED DISCHARGE INSTRUCTIONS ---
Patient: TAD PATEL General Instructions [facility] VisitID: [id number] [address] [place] [address] 89y, F Registration Date/Time: 10/27/2016 Abdominal pain of unknown cause. Occult GI bleed. Urinary tract infection. (Electronically signed by Sen Schmitz MD 10/28/2016 21:43)
--- NOTE | 2016-10-28 21:44 | ED MED RECONCILIATION SUMMARY ---
Patient: TAD PATEL Medication Reconciliation Report [facility] VisitID: [id number] [address] [place] [address] 89y, F Registration Date/Time: 10/27/2016 Weight: 77.1 kg Height/Length: 65 in. BMI: 28.3 ALLERGIES: No Known Drug Allergy The patient's Home Medications are listed below: THE FOLLOWING MEDICATIONS NEED TO BE RECONCILED: Allopurinol Oral (300 mg), daily Digoxin Oral (125 mcg) 1 tablet, 1 tab ;;sa cain and 2 tablets on ; ; Furosemide Oral (20 mg) 2 tablets, daily Lisinopril Oral Metoprolol Tartrate Oral Potassimin Oral 10 meq, 1 twice daily PredniSONE Oral Simvastatin Oral (20 mg) 1 tablet, daily The source(s) of the original Home Medication information: patient The following Medications were given to the patient in the Emergency Department: Zofran [IVP] IVP 4 mg, administered: 10/27/2016 7:25:00 PM IV NS IV Fluids bolus 500 mL over 1 hour(s), then 125 mL/hr, administered: 10/27/2016 7:25:00 PM Ceftriaxone [IVPB] IVPB bolus 0, then 1 gm 150 mL/hr, administered: 10/27/2016 9:35:00 PM The following Medications were prescribed to the patient: None.
--- NOTE | 2016-10-28 21:44 | ED MAR SUMMARY ---
..... Medication Administration Record [facility] [address] [place] [address] Patient: TAD PATEL Visit ID: [id number] 89y, F Weight: 77.1 kg Height/Length: 65 in BMI: 28.3 ALLERGIES: No Known Drug Allergy Start 19:25 10/27/2016 Ana Guevara R.N. Medication Administered: IV NS (SALINE), Dose: IV Fluids over 4 hour(s), Rate: 125 mL/hr, Bolus: 500 mL over 1 hour(s), Dispensed: 1000 mL bag, Site: #1 right AC. Medication Ordered: IV NS : initial bolus 500 mL (1000 mL/hr), then 125 mL/hr for 4h (NOW); Urgent. Given 19:25 10/27/2016 Ana Guevara R.N. Medication Administered: ZOFRAN [IVP] (ONDANSETRON HCL), Dose: 4 mg IVP over 2 minute(s), Site: #1 right AC. Medication Ordered: Zofran IV 4 mg (NOW). Start 21:35 10/27/2016 Ana Guevara R.N., Stop 22:09 10/27/2016 Ana Guevara R.N. Medication Administered: CEFTRIAXONE [IVPB], Dose: 1 gm IVPB over 30 minute(s), Rate: 150 mL/hr, Dispensed: 50 mL bag, Site: #1 right AC. Medication Ordered: Ceftriaxone IV 1 gm/50mL (NOW).
[2016-10-29 02:42] VITALS: BP 136/69
[2016-10-29 06:49] VITALS: BP 152/84
[2016-10-29 11:18] VITALS: BP 155/90
[2016-10-29 14:37] VITALS: BP 157/81
[2016-10-29] MEDS ORDERED: LISINOPRIL/HYDR1 TA1 PO (17:06)
[2016-10-29 18:25] VITALS: BP 168/86
[2016-10-29 22:32] VITALS: BP 154/70
[2016-10-30 06:35] VITALS: BP 131/88
[2016-10-30] MEDS ORDERED: CEPHALEXIN500 MG PO (08:27)
[2016-10-30] MEDS ORDERED: LOPRESSOR25 MG PO (08:31)
--- NOTE | 2016-10-30 08:47 | Provider's Discharge Care Plan ---
Problem, Goal, Plan Problem List 1. UTI (urinary tract infection) Goals: Improve disease control, Improve function, Improved health/wellness Instructions: Follow up as directed, Increase activity level, Take meds as directed, Drink plenty of fluids. Take cephalexin 5oo mg twice daioly x 7d. 2. Weak Goals: Improve disease control, Improve function, Improved health/wellness Instructions: Follow up as directed, Increase activity level, Take meds as directed, Reduce stress, Drink plenty of fluids and eat regular meals. Work with PT abd OT for strengthening. 3. Dehydration Goals: Improve disease control, Improve function, Improved health/wellness Instructions: Follow up as directed, Increase activity level, Take meds as directed, Enclujrage fluids. 4. GI bleed Goals: Improve disease control, Improved health/wellness Instructions: Follow up as directed, Increase activity level, Take meds as directed, Notify if blood in stool develops 5. Confusion Goals: Improve disease control, Improve function, Improved health/wellness Instructions: Follow up as directed, Increase activity level, Take meds as directed, Work with PT and OT and visiting nurse. 6. Hypertension Goals: Improve disease control, Improve function, Improved health/wellness Instructions: Follow up as directed, Increase activity level, Take meds as directed, Take metoprolol 50p mg twice daily and lisinopriol/HCTZ 1 daily and eat 1 banana daily.
--- NOTE | 2016-11-01 11:44 | DISCHARGE SUMMARY ---
ADMIT DATE: 10/27/2016 DISCHARGE DATE: 10/30/2016 ADMITTING DIAGNOSIS: 1. Acute urinary tract infection with dehydration and hyponatremia. DISCHARGE DIAGNOSES: 1. Acute urinary tract infection secondary to Escherichia coli. Episode of gastroenteritis and dehydration. 2. Hyponatremia. 3. Transient pancreatic irritation. 4. Longstanding problems include hypertension. 5. Mild chronic kidney disease. 6. Polymyalgia rheumatica. 7. Also, the patient had some episodes of confusion and hallucinations during her hospitalization, which seemed to be related mostly to her acute illness. 8. Spinal stenosis. PROCEDURE: 1. None. BRIEF HISTORY: Please see the dictated history and physical exam for details concerning admission. HOSPITAL COURSE: The patient is an 89-year-old woman who was brought into the emergency room for generalized weakness and abdominal pain and loose stools and episodes of vomiting. She had had symptoms for 2 days or so prior to her admission. She was found to have significant electrolyte abnormalities with hyponatremia and significant renal insufficiency as well as a significantly elevated white blood cell count and urine showing a urinary tract infection. She also had a slightly elevated amylase level. She was admitted and started on IV fluids for rehydration and was started on ceftriaxone as an antibiotic. She gradually improved and was able to start clear liquids and then was able to be advanced to a regular diet by the second or third hospital day. She showed progressive decline in her white blood cell count. Her renal function parameters improved. She was given a boost of steroids as she has been on prednisone 10 mg daily for quite some time due to polymyalgia rheumatica. She did have some episodes of quite significant confusion and hallucinations the second night that she was in the hospital. She also became quite oppositional at times during the third hospital day, but her family members were able to have her calm down and agree to stay 1 more day. She was able to be switched from ceftriaxone to cephalexin 500 mg p.o. every 8 hours. Her urine culture grew out E. coli sensitive to basically all antibiotics. She had a fairly restful night with no hallucinations or major confusion on the night of 10/29/2016-10/30/2016. She was doing well on the morning on 10/30/2016 and was felt to be able to be discharged home. She was eating okay and taking oral antibiotics okay. Her kidney function had improved to the point of showing a creatinine of 1.3 and a BUN of 28. Her sodium had normalized and other electrolytes were normal. Her elevated amylase level had resolved. She was felt to be doing well enough to be discharged home. DISCHARGE INSTRUCTIONS/MEDICATIONS: Disposition: The patient is discharged home in the care of her son. Medications will include continuation of Cephalexin 500 mg twice daily for 7 days. She will also continue with her other usual medications including metoprolol tartrate at 50 mg twice daily. She will continue prednisone 10 mg daily, Digoxin 0.125 mg daily and Lisinopril 20 HCTZ 12.5 one daily for blood pressure control. She will plan to follow up in my office in about 1 week. If any new problems or symptoms develop, she will call or her family will call and bring her in sooner. She will have home health arranged to make sure she is doing okay with her medications and to see how she is doing behaviorally. The episodes of confusion and hallucinations were not something that she usually had problems with and this will need to be evaluated if it continues. It may simply have been due to the acute illness. She will continue to use a walker for ambulation due to the spinal stenosis and pain that develops with walking if she is not using a walker.
== END 2016-10-30 10:00 | disposition home health service (06) | DRG 690 ==
LOC: ED SRH 18:36 → ACUTE2 SRH 21:15 → TRANS SRH 21:15 → ACUTE2 SRH 21:15
PROVIDERS: ADMIT Family Medicine
DX: N39.0 Urinary tract infection, site not specified (principal); B96.20 Unspecified Escherichia coli [E. coli] as the cause of diseases classified elsewhere; E87.1 Hypo-osmolality and hyponatremia; E86.0 Dehydration; K52.9 Noninfective gastroenteritis and colitis, unspecified; R74.8 Abnormal levels of other serum enzymes; I12.9 Hypertensive chronic kidney disease with stage 1 through stage 4 chronic kidney disease, or unspecified chronic kidney disease; N18.9 Chronic kidney disease, unspecified; R41.0 Disorientation, unspecified; R44.1 Visual hallucinations; M35.3 Polymyalgia rheumatica
CPT/HCPCS: 29230; 81460; 85241; 85244; 90004; 90047; 90065; 90074; 90100; 90148; 90469; 90616; 91320; 92031; 92235; 92530; 92610; 92720; 94001; 94060; 95059